=== PATIENT | female | born 1960 | race African-American/Black ===

== ENCOUNTER 2020-12-22 21:00 | Inpatient (IN) | payer MEDICAID, OTHER ==
[~2020-12-22] VITALS: Ht 154.9 cm; Wt 76.7 kg
[2020-12-22] MEDS ORDERED: ONDANSETRON HCL 4MG/2ML INJ IV STA (22:57)
[2020-12-22] MEDS ORDERED: MORPHINE SULFATE 4 MG/ML CPJ (NOT FOR IM USE) IV STA (22:57)
[2020-12-22 23:51] LABS: BASOPHILS % 0.3 % (0.0-2.0); EOSINOPHILS % 0.1 % (0.0-5.0); HEMATOCRIT. 45.4 % (36.0-48.0); LYMPHOCYTES % 12.9 % (20.0-50.0); MEAN CORPUSCULAR HEMOGLOBIN 27.4 pg (28.0-32.0); MEAN CORPUSCULAR VOLUME 83.1 fL (81.0-99.0); MEAN PLATELET VOLUME 8.7 fl (7.4-10.4); MONOCYTES % 9.1 % (2.0-8.0); NEUTROPHILS % 77.6 % (40.0-76.0); PLATELET 207 x1000/uL (130-400); RED BLOOD CELL COUNT 5.46 mill/uL (4.2-5.4); RED CELL DISTRIBUTION WIDTH 16.3 % (11.6-14.6)
[2020-12-22 23:58] LABS: PROTHROMBIN TIME 10.5 sec (9.6-11.0)
[2020-12-23 00:01] LABS: CHLORIDE 101 mEq/L (98-107)
[2020-12-23] MEDS ORDERED: IOHEXOL-300 100 ML BOTTLE ONE (06:11)
[2020-12-23 08:53] LABS: CLARITY URINE CLOUDY (CLEAR); COLOR URINE DARK YELLOW (YELLOW); KETONES URINE 2+ (NEGATIVE); LEUKOCYTE ESTERASE URINE NEGATIVE (NEGATIVE); NITRITE URINE NEGATIVE (NEGATIVE); OCCULT BLOOD URINE NEGATIVE (NEGATIVE); PH URINE 5.5 (4.5-8.0); PROTEIN URINE 2+ (NEGATIVE); SPECIFIC GRAVITY URINE 1.083 (1.005-1.030)
[2020-12-23] MEDS: ONDANSETRON HCL 4MG/2ML INJ IV PRN (10:55)
[2020-12-23 17:27] VITALS: BP 152/78
[2020-12-23] MEDS ORDERED: ACETAMINOPHEN 325MG TABLET PO PRN (17:30)
[2020-12-23] MEDS ORDERED: CLONIDINE 0.1MG TABLET PO PRN (18:15)
[2020-12-23] MEDS ORDERED: NALOXONE HCL 0.4MG/ML VIAL IV PRN (19:00)
[2020-12-23] MEDS: AZITHROMYCIN 500 MG in DEXT 5% WATER 250 ML IV SCH (20:01)
[2020-12-23] MEDS: ALBUTEROL 6.7GM HFA INHALER ORI SCH (20:02)
[2020-12-23] MEDS: ENOXAPARIN 40MG/0.4ML SYR SUBCUT SCH (20:02)
[2020-12-23] MEDS: CEFTRIAXONE 1,000 MG in DEXTROSE 5% WATER 50 ML IV SCH (20:02)
[2020-12-23 20:39] VITALS: BP 140/79
[2020-12-23] MEDS ORDERED: CEFTRIAXONE 1 G PREMIX 50 ML IV SCH (21:00)
[2020-12-23 23:57] VITALS: BP 142/88
[2020-12-24] MEDS: ALBUTEROL 6.7GM HFA INHALER ORI SCH ×6 (02:15→20:17)
[2020-12-24 04:00] VITALS: BP 141/79
[2020-12-24] MEDS: HYDROCODONE/ACETAMINOPHEN 10/325MG TABLET PO PRN (04:24)
[2020-12-24 08:00] VITALS: BP 130/73
[2020-12-24] MEDS: DEXAMETHASONE 10 MG/ML VIAL IV SCH (08:25)
[2020-12-24] MEDS: AMLODIPINE 5MG TABLET PO SCH (08:26)
[2020-12-24] MEDS: ENOXAPARIN 40MG/0.4ML SYR SUBCUT SCH ×2 (08:26→20:16)
[2020-12-24] MEDS: ONDANSETRON HCL 4MG/2ML INJ IV PRN (08:31)
[2020-12-24] MEDS ORDERED: FAMOTIDINE 20MG TABLET PO SCH (09:00)
[2020-12-24 10:06] LABS: *AMPHETAMINES SCREEN URINE NEGATIVE (NEGATIVE); *BARBITURATES SCREEN URINE NEGATIVE (NEGATIVE); *COCAINE SCREEN URINE NEGATIVE (NEGATIVE)
[2020-12-24 10:07] LABS: *BENZODIAZEPINES SCREEN URINE NEGATIVE (NEGATIVE); CANNABINOID URINE SCREEN NEGATIVE (NEGATIVE); METHADONE URINE SCREEN NEGATIVE (NEGATIVE); OPIATES URINE SCREEN PRESUMTIVE POSITIVE (NEGATIVE); PHENCYCLIDINE URINE SCREEN NEGATIVE (NEGATIVE)
[2020-12-24 12:00] VITALS: BP 125/73
[2020-12-24 12:59] LABS: BG BASE EXCESS -1.7 mmol/L (-2.0-2.0); BG CARBOXYHEMOGLOBIN 0.5 % (0.5-1.5); BG DEOXYHEMOGLOBIN 9.7 % (0.0-5.0); BG HCO3 ACT 21.3 mmol/L (22.0-26.0); BG METHEMOGLOBIN 0.1 % (0.0-1.5); BG OXYGEN SATURATION 90.2 % (92.0-98.5); BG OXYHEMOGLOBIN 89.7 % (94.0-97.0); BG PCO2 31.7 mmHg (35.0-45.0); BG PH 7.445 (7.350-7.450); BG PO2 53.3 mmHg (75.0-100.0); BG SAMPLE SITE RIGHT RADIAL; BG TOTAL HEMOGLOBIN 15.2 g/dL (12.0-18.0); BG VENT MODE ROOM AIR
[2020-12-24 16:00] VITALS: BP 138/74
[2020-12-24 20:00] VITALS: BP 146/72
[2020-12-24] MEDS: FLUTICASONE PROPIONATE 50MCG/SPRAY BOTTLE BOTHNSTRLS SCH (20:16)
[2020-12-24] MEDS: AZITHROMYCIN 500 MG in DEXT 5% WATER 250 ML IV SCH (20:17)
[2020-12-24] MEDS: CEFTRIAXONE 1,000 MG in DEXTROSE 5% WATER 50 ML IV SCH (20:17)
[2020-12-24 20:27] LABS: BASOPHILS % 0.2 % (0.0-2.0); HEMATOCRIT. 43.7 % (36.0-48.0); HEMOGLOBIN. 14.5 g/dL (12.0-16.0); LYMPHOCYTES % 8.8 % (20.0-50.0); MEAN CORPUSCULAR HEMOGLOBIN 27.7 pg (28.0-32.0); MEAN CORPUSCULAR VOLUME 83.3 fL (81.0-99.0); MEAN PLATELET VOLUME 8.7 fl (7.4-10.4); MONOCYTES % 2.7 % (2.0-8.0); NEUTROPHILS % 88.3 % (40.0-76.0); PLATELET 294 x1000/uL (130-400); RED BLOOD CELL COUNT 5.24 mill/uL (4.2-5.4); RED CELL DISTRIBUTION WIDTH 16.3 % (11.6-14.6)
[2020-12-24 20:39] LABS: CHLORIDE 100 mEq/L (98-107)
[2020-12-25] VITALS: BP 129/80
[2020-12-25] MEDS: ALBUTEROL 6.7GM HFA INHALER ORI SCH ×7 (00:20→23:29)
[2020-12-25 04:00] VITALS: BP 133/80
[2020-12-25 08:00] VITALS: BP 110/72
[2020-12-25] MEDS: PANTOPRAZOLE SODIUM 40 MG/VIAL IV SCH (08:31)
[2020-12-25] MEDS: ENOXAPARIN 40MG/0.4ML SYR SUBCUT SCH (08:31)
[2020-12-25] MEDS: DEXAMETHASONE 10 MG/ML VIAL IV SCH (08:32)
[2020-12-25] MEDS: HYDROCODONE/ACETAMINOPHEN 10/325MG TABLET PO PRN (08:32)
[2020-12-25] MEDS: FLUTICASONE PROPIONATE 50MCG/SPRAY BOTTLE BOTHNSTRLS SCH ×2 (08:33→20:10)
[2020-12-25] MEDS: AMLODIPINE 5MG TABLET PO SCH (08:33)
[2020-12-25 12:00] VITALS: BP 147/85
[2020-12-25 16:00] VITALS: BP 118/65
[2020-12-25 20:00] VITALS: BP 139/73
[2020-12-25] MEDS: AZITHROMYCIN 500 MG in DEXT 5% WATER 250 ML IV SCH (20:08)
[2020-12-25] MEDS: CEFTRIAXONE 1,000 MG in DEXTROSE 5% WATER 50 ML IV SCH (20:08)
[2020-12-26] VITALS: BP 159/83
[2020-12-26 04:00] VITALS: BP 137/77
[2020-12-26] MEDS: ALBUTEROL 6.7GM HFA INHALER ORI SCH ×5 (04:20→20:57)
[2020-12-26 08:00] VITALS: BP 138/76
[2020-12-26] MEDS: FLUTICASONE PROPIONATE 50MCG/SPRAY BOTTLE BOTHNSTRLS SCH ×2 (08:03→20:57)
[2020-12-26] MEDS: AMLODIPINE 5MG TABLET PO SCH (08:13)
[2020-12-26] MEDS: DEXAMETHASONE 10 MG/ML VIAL IV SCH (08:13)
[2020-12-26] MEDS: HYDROCODONE/ACETAMINOPHEN 10/325MG TABLET PO PRN (08:14)
[2020-12-26] MEDS: PANTOPRAZOLE SODIUM 40 MG/VIAL IV SCH (08:14)
[2020-12-26] MEDS: ENOXAPARIN 40MG/0.4ML SYR SUBCUT SCH (08:24)
[2020-12-26 12:00] VITALS: BP 138/74
[2020-12-26 16:00] VITALS: BP 143/79
[2020-12-26 20:00] VITALS: BP 146/74
[2020-12-26] MEDS: CEFTRIAXONE 1,000 MG in DEXTROSE 5% WATER 50 ML IV SCH (20:58)
[2020-12-26] MEDS: AZITHROMYCIN 500 MG in DEXT 5% WATER 250 ML IV SCH (20:58)
[2020-12-27] VITALS: BP 138/80
[2020-12-27 04:00] VITALS: BP 132/90
[2020-12-27] MEDS: ALBUTEROL 6.7GM HFA INHALER ORI SCH ×6 (06:18→22:11)
[2020-12-27 08:00] VITALS: BP 150/86
[2020-12-27] MEDS: FAMOTIDINE 20MG/2ML VIAL IV SCH ×2 (10:39→22:10)
[2020-12-27] MEDS: ENOXAPARIN 40MG/0.4ML SYR SUBCUT SCH (10:39)
[2020-12-27] MEDS: FLUTICASONE PROPIONATE 50MCG/SPRAY BOTTLE BOTHNSTRLS SCH (10:40)
[2020-12-27] MEDS: AMLODIPINE 5MG TABLET PO SCH (10:48)
[2020-12-27] MEDS: DEXAMETHASONE 10 MG/ML VIAL IV SCH (11:14)
[2020-12-27 12:00] VITALS: BP 120/64
[2020-12-27 16:00] VITALS: BP 104/55
[2020-12-27 20:00] VITALS: BP 143/77
[2020-12-27] MEDS: AZITHROMYCIN 500 MG in DEXT 5% WATER 250 ML IV SCH (22:10)
[2020-12-27] MEDS: CEFTRIAXONE 1,000 MG in DEXTROSE 5% WATER 50 ML IV SCH (22:10)
[2020-12-28] VITALS: BP 148/79
[2020-12-28 04:00] VITALS: BP 141/74
[2020-12-28] MEDS: ALBUTEROL 6.7GM HFA INHALER ORI SCH ×6 (04:04→20:39)
[2020-12-28 08:00] VITALS: BP 143/79
[2020-12-28] MEDS: FAMOTIDINE 20MG/2ML VIAL IV SCH (08:38)
[2020-12-28] MEDS: DEXAMETHASONE 10 MG/ML VIAL IV SCH (08:38)
[2020-12-28] MEDS: AMLODIPINE 5MG TABLET PO SCH (08:39)
[2020-12-28] MEDS: ENOXAPARIN 40MG/0.4ML SYR SUBCUT SCH (10:15)
[2020-12-28 12:00] VITALS: BP 118/70
[2020-12-28 16:00] VITALS: BP 131/78
[2020-12-28 20:00] VITALS: BP 142/80
[2020-12-28] MEDS: CEFTRIAXONE 1,000 MG in DEXTROSE 5% WATER 50 ML IV SCH (20:39)
[2020-12-28] MEDS: FAMOTIDINE 20MG TABLET PO SCH (20:40)
[2020-12-29] VITALS: BP 134/85
[2020-12-29] MEDS: ALBUTEROL 6.7GM HFA INHALER ORI SCH ×6 (00:15→21:19)
[2020-12-29 04:00] VITALS: BP 133/84
[2020-12-29 08:00] VITALS: BP 120/69
[2020-12-29] MEDS: FAMOTIDINE 20MG TABLET PO SCH ×2 (08:09→21:18)
[2020-12-29] MEDS: ENOXAPARIN 40MG/0.4ML SYR SUBCUT SCH (08:09)
[2020-12-29] MEDS: DEXAMETHASONE 10 MG/ML VIAL IV SCH (08:10)
[2020-12-29] MEDS: AMLODIPINE 5MG TABLET PO SCH (08:10)
[2020-12-29 12:00] VITALS: BP 120/69
[2020-12-29 16:00] VITALS: BP 118/64
[2020-12-29 20:00] VITALS: BP 149/77
[2020-12-30] VITALS: BP 133/74
[2020-12-30] MEDS: ALBUTEROL 6.7GM HFA INHALER ORI SCH ×6 (00:13→21:51)
[2020-12-30 04:00] VITALS: BP 141/72
[2020-12-30 07:43] LABS: HEMATOCRIT. 39.2 % (36.0-48.0); HEMOGLOBIN. 13.2 g/dL (12.0-16.0); MEAN CORPUSCULAR HEMOGLOBIN 29.2 pg (28.0-32.0); MEAN CORPUSCULAR VOLUME 86.6 fL (81.0-99.0); MEAN PLATELET VOLUME 7.9 fl (7.4-10.4); PLATELET 495 x1000/uL (130-400); RED BLOOD CELL COUNT 4.53 mill/uL (4.2-5.4); RED CELL DISTRIBUTION WIDTH 15.6 % (11.6-14.6)
[2020-12-30 08:00] VITALS: BP 111/76
[2020-12-30 08:48] LABS: CHLORIDE 108 mEq/L (98-107)
[2020-12-30] MEDS: DEXAMETHASONE 10 MG/ML VIAL IV SCH (09:18)
[2020-12-30] MEDS: AMLODIPINE 5MG TABLET PO SCH (09:18)
[2020-12-30] MEDS: FAMOTIDINE 20MG TABLET PO SCH ×2 (09:18→21:51)
[2020-12-30] MEDS: ENOXAPARIN 40MG/0.4ML SYR SUBCUT SCH (09:19)
[2020-12-30 12:00] VITALS: BP 98/68
[2020-12-30 16:00] VITALS: BP 120/62
[2020-12-30 19:36] LABS: PLATELET ESTIMATE INCREASED
[2020-12-30 20:00] VITALS: BP 119/71
[2020-12-31] VITALS: BP 114/69
[2020-12-31] MEDS: ALBUTEROL 6.7GM HFA INHALER ORI SCH ×7 (00:24→23:52)
[2020-12-31 04:00] VITALS: BP 121/72
[2020-12-31] MEDS: FAMOTIDINE 20MG TABLET PO SCH ×2 (08:38→20:27)
[2020-12-31] MEDS: ENOXAPARIN 40MG/0.4ML SYR SUBCUT SCH (08:38)
[2020-12-31] MEDS: DEXAMETHASONE 10 MG/ML VIAL IV SCH (08:39)
[2020-12-31] MEDS: AMLODIPINE 5MG TABLET PO SCH (08:39)
[2020-12-31 12:00] VITALS: BP 115/63
[2020-12-31 16:00] VITALS: BP 127/77
[2020-12-31 20:00] VITALS: BP 130/74
[2021-01-01 00:14] VITALS: BP 134/64
[2021-01-01] MEDS: ALBUTEROL 6.7GM HFA INHALER ORI SCH ×5 (03:53→21:10)
[2021-01-01 04:00] VITALS: BP 142/78
[2021-01-01 08:00] VITALS: BP 147/72
[2021-01-01] MEDS: AMLODIPINE 5MG TABLET PO SCH (08:58)
[2021-01-01] MEDS: ENOXAPARIN 40MG/0.4ML SYR SUBCUT SCH (08:58)
[2021-01-01] MEDS: FAMOTIDINE 20MG TABLET PO SCH ×2 (08:58→21:10)
[2021-01-01] MEDS: DEXAMETHASONE 10 MG/ML VIAL IV SCH (08:58)
[2021-01-01 12:00] VITALS: BP 107/78
[2021-01-01 16:00] VITALS: BP 108/71
[2021-01-01 20:00] VITALS: BP 119/87
[2021-01-02] VITALS: BP 130/62
[2021-01-02 04:00] VITALS: BP 126/70
[2021-01-02] MEDS: ALBUTEROL 6.7GM HFA INHALER ORI SCH ×6 (04:00→21:07)
[2021-01-02 08:00] VITALS: BP 137/66
[2021-01-02] MEDS: DEXAMETHASONE 10 MG/ML VIAL IV SCH (09:11)
[2021-01-02] MEDS: AMLODIPINE 5MG TABLET PO SCH (09:11)
[2021-01-02] MEDS: FAMOTIDINE 20MG TABLET PO SCH ×2 (09:11→21:07)
[2021-01-02] MEDS: ENOXAPARIN 40MG/0.4ML SYR SUBCUT SCH (09:11)
[2021-01-02 12:00] VITALS: BP 118/66
[2021-01-02 16:00] VITALS: BP 102/72
[2021-01-02 20:00] VITALS: BP 115/73
[2021-01-03] VITALS: BP 116/69
[2021-01-03 04:00] VITALS: BP 118/60
[2021-01-03 08:00] VITALS: BP 121/65
[2021-01-03] MEDS: FAMOTIDINE 20MG TABLET PO SCH ×2 (08:40→21:35)
[2021-01-03] MEDS: AMLODIPINE 5MG TABLET PO SCH (08:40)
[2021-01-03] MEDS: ALBUTEROL 6.7GM HFA INHALER ORI SCH ×4 (08:41→21:36)
[2021-01-03] MEDS: ENOXAPARIN 40MG/0.4ML SYR SUBCUT SCH (08:41)
[2021-01-03] MEDS: DEXAMETHASONE 10 MG/ML VIAL IV SCH (09:02)
[2021-01-03 12:00] VITALS: BP 135/69
[2021-01-03 16:00] VITALS: BP 132/77
[2021-01-03 20:00] VITALS: BP 121/68
[2021-01-04] VITALS: BP 122/78
[2021-01-04 04:00] VITALS: BP 137/74
[2021-01-04] MEDS: ALBUTEROL 6.7GM HFA INHALER ORI SCH ×6 (04:54→21:27)
[2021-01-04 08:00] VITALS: BP 135/75
[2021-01-04] MEDS: DEXAMETHASONE 10 MG/ML VIAL IV SCH (10:16)
[2021-01-04] MEDS: ENOXAPARIN 40MG/0.4ML SYR SUBCUT SCH (10:16)
[2021-01-04] MEDS: FAMOTIDINE 20MG TABLET PO SCH ×2 (10:17→21:28)
[2021-01-04] MEDS: AMLODIPINE 5MG TABLET PO SCH (10:17)
[2021-01-04 12:00] VITALS: BP 121/68
[2021-01-04 16:00] VITALS: BP 135/69
[2021-01-04 20:00] VITALS: BP 137/82
[2021-01-05] VITALS: BP 121/70
[2021-01-05 04:00] VITALS: BP 124/69
[2021-01-05] MEDS: ALBUTEROL 6.7GM HFA INHALER ORI SCH ×5 (04:42→16:32)
[2021-01-05] MEDS: ENOXAPARIN 40MG/0.4ML SYR SUBCUT SCH (08:24)
[2021-01-05] MEDS: FAMOTIDINE 20MG TABLET PO SCH (08:24)
[2021-01-05] MEDS: DEXAMETHASONE 10 MG/ML VIAL IV SCH (08:24)
[2021-01-05] MEDS: AMLODIPINE 5MG TABLET PO SCH (08:25)
[2021-01-05 12:00] VITALS: BP 144/80
[2021-01-05 16:00] VITALS: BP 111/64
[2021-01-05] MEDS ORDERED: ALBU6.7H9 ORI (16:42)
[2021-01-05] MEDS ORDERED: AMLO5TAB88 PO (16:42)
[2021-01-05 17:33] VITALS: BP 144/80
== END 2021-01-05 18:45 | disposition home or self-care (01) | DRG 720 ==
LOC: ER 21:00 → 7WST 12-23 00:32 → ENRESERV 12-23 13:50 → CANRESERV 12-23 13:50 → ENRESERV 12-23 15:36 → 7WST 12-23 18:46 → CANBEDREQ 12-23 22:53
PROVIDERS: ADMIT Internal Medicine; ATTEND Internal Medicine
DX: A41.89 Other specified sepsis (principal); U07.1 COVID-19; J96.00 Acute respiratory failure, unspecified whether with hypoxia or hypercapnia; E87.1 Hypo-osmolality and hyponatremia; Z79.899 Other long term (current) drug therapy
CPT/HCPCS: 36415; 36600; 71045; 74177; 80048; 80053; 80305; 81003; 82375; 82805; 82962; 85025; 93005; 99285; C9113; C9803; J0456; J0696; J1100; J1650; J2270; J2405; J3490; J7060; Q9967; U0003; U0005

== ENCOUNTER 2023-09-16 21:52 | Emergency (ER) | payer MEDICAID, OTHER ==
[~2023-09-16] VITALS: Ht 157.5 cm; Wt 78.0 kg
[~2023-09-16 21:52] MED LIST: ALBU6.7H3 ORI; AMLO5TAB88 PO
[2023-09-16 22:27] LABS: CLARITY URINE CLOUDY (CLEAR); COLOR URINE DARK YELLOW (YELLOW); GLUCOSE URINE NEGATIVE (NEGATIVE); KETONES URINE 4+ (NEGATIVE); LEUKOCYTE ESTERASE URINE 2+ (NEGATIVE); NITRITE URINE NEGATIVE (NEGATIVE); OCCULT BLOOD URINE NEGATIVE (NEGATIVE); PH URINE 5.5 (4.5-8.0); PROTEIN URINE 1+ (NEGATIVE); SPECIFIC GRAVITY URINE 1.029 (1.005-1.030)
[2023-09-16 22:32] VITALS: O2SAT 98
[2023-09-16 23:27] LABS: BASOPHILS % 0.2 % (0.0-2.0); DIFFERENTIAL COMMENT 0; EOSINOPHILS % 3.8 % (0.0-5.0); HEMATOCRIT. 35.4 % (36.0-48.0); HEMOGLOBIN. 11.6 g/dL (12.0-16.0); LYMPHOCYTES % 10.9 % (20.0-50.0); MEAN CORPUSCULAR HEMOGLOBIN 25.1 pg (28.0-32.0); MEAN CORPUSCULAR HGB CONC 32.8 g/dL (31.0-37.0); MEAN CORPUSCULAR VOLUME 76.4 fL (81.0-99.0); MEAN PLATELET VOLUME 7.6 fl (7.4-10.4); MONOCYTES % 6.7 % (2.0-8.0); NEUTROPHILS % 78.4 % (40.0-76.0); PLATELET 440 x1000/uL (130-400); RED BLOOD CELL COUNT 4.63 mill/uL (4.2-5.4); RED CELL DISTRIBUTION WIDTH 16.7 % (11.6-14.6); WHITE BLOOD COUNT 7.8 x1000/uL (4.5-11.0)
[2023-09-16 23:37] LABS: ALANINE AMINOTRANSFERASE 21 IU/L (10-49); ALBUMIN 4.5 g/dL (3.2-4.8); ASPARTATE AMINOTRANSFERASE 19 IU/L (<34); BILIRUBIN TOTAL 0.7 mg/dL (0.1-1.0); CALCIUM 9.2 mg/dL (8.7-10.4); CARBON DIOXIDE 22 mEq/L (21-32); CHLORIDE 103 mEq/L (98-107); CREATININE 0.8 mg/dL (0.6-1.0); GLUCOSE 100 mg/dL (70-105); POTASSIUM 3.6 mEq/L (3.5-5.1); SODIUM 134 mEq/L (136-145); UREA NITROGEN BLOOD 11 mg/dL (9-23)
[2023-09-16 23:45] LABS: BACTERIA URINE 2+; RBC URINE 0-2 /hpf (0-2); SQUAMOUS EPITHELIAL CELL URINE 1+ /lpf (RARE/1+)
[2023-09-16 23:46] LABS: WBC URINE 25-50 /hpf (0-2)
[2023-09-17] MEDS: MAGNESIUM/ALUMINUM HYDROXIDE/SIMETHICONE 30ML UDC PO NR (01:30)
[2023-09-17] MEDS: ACETAMINOPHEN 325MG TABLET PO NR (01:30)
[2023-09-17] MEDS: SODIUM CHLORIDE 0.9% 1,000 ML IV ONE (01:30)
[2023-09-17] MEDS: ONDANSETRON HCL 4MG/2ML INJ IV NR (02:10)
[2023-09-17] MEDS: MORPHINE SULFATE 2 MG/ML CPJ (NOT FOR IM USE) IV ONE (05:08)
[2023-09-17] MEDS: CEFTRIAXONE 1GM/50ML 50 ML IV ONE (05:08)
[2023-09-17] MEDS: METRONIDAZOLE 500 MG PREMIX 100 ML IV ONE (06:21)
[2023-09-17 07:51] VITALS: BP 138/78; PULSE 78; RESP 16; TEMP 98
== END 2023-09-17 07:52 | disposition short-term general hospital (02) ==
LOC: ER 21:52 → CANBEDREQ 09-17 04:53 → ER 09-17 07:52
DX: N39.0 Urinary tract infection, site not specified (principal); R19.7 Diarrhea, unspecified; K56.600 Partial intestinal obstruction, unspecified as to cause; J45.909 Unspecified asthma, uncomplicated; E78.00 Pure hypercholesterolemia, unspecified; I10 Essential (primary) hypertension
CPT/HCPCS: 99285; 80053; 81003; 83690; 85025; 87086; 87077; 36415; 74176; 96365; 96375; 96361; 96366; J0696; J3490; J2405; J2270